=== PATIENT | female | born 1975 | race Caucasian/White ===

== ENCOUNTER 2017-09-23 22:08 | Emergency (ER) | payer MEDICAID, OTHER ==
[~2017-09-23] VITALS: Ht 154.9 cm; Wt 70.0 kg
[~2017-09-23 22:08] MED LIST: LORTA5 PO; PROT40TA PO; VITA100020 IJ
[2017-09-23 22:09] VITALS: BP 107/63; PULSE 69; RESP 16; TEMP 97.9; O2SAT 100
[2017-09-23 22:45] VITALS: BP 109/72; PULSE 69; RESP 16; TEMP 98.1; O2SAT 100
[2017-09-23] MEDS ORDERED: CYAN1TAB24 (22:56)
[2017-09-23] MEDS ORDERED: TEMA7.5C9 PO (22:56)
[2017-09-23] MEDS ORDERED: BUPIVACAINE HCL PF 0.5% 30 ML VIAL INFIL ONE (23:15)
--- NOTE | 2017-09-24 00:05 | PD ---
HPI . Oral/dental problem Chief Complaint: Oral / Dental Pain or Problem Time Seen by Provider: 22:52 Travel History International Travel<30 days: No Contact w/Intl Traveler<30days: No Traveled to known affect area: No History of Present Illness HPI 41-year-old female presents with complaints of dental pain, scheduled for dental extraction 09/26, presents requesting pain medications. Patient states she has allergies to acetaminophen, ibuprofen, tramadol, and oxycodone is the only medication that works for her. Patient is noted to be nodding and somewhat lethargic at presentation, needing to be awakened repeatedly during exam and history. Patient's level complains of pain at 10/10 is discordant with patient's presentation [facility] Past Medical History Narrative Medical Past medical history reviewed Asthma: Yes Anxiety: Yes Depression: Yes Cardiovascular Problems: No Diminished Hearing: Yes (PT IS DEAF) Endocrine: No Gastrointestinal Disorders: Yes Genitourinary: Yes (gallstones) Immune Disorder: No Musculoskeletal: Yes (CHRONIC BACK PAIN) Neurologic: Yes Psychiatric: Yes (insomnia) Reproductive: No Respiratory: Yes Migraines: Yes : 5 Para: 5 Tubal Ligation: Yes Past Surgical History Abdominal Surgery: Yes (GALLSTONES) Section: Yes (X1) Cholecystectomy: Yes Other Surgery: No Social History Alcohol Use: Yes (OCC) Tobacco Use: Yes (VAPOR) Substance Use: No Allergies-Medications (Allergen,Severity, Reaction): Coded Allergies: tramadol (Unverified Allergy, Intermediate, 04/25/17) acetaminophen (Verified Allergy, Unknown, 09/23/17) ibuprofen (Verified Allergy, Unknown, 09/23/17) Reported Meds & Prescriptions Reported Meds & Active Scripts Active Reported Restoril (Temazepam) 7.5 Mg Cap 7.5 Mg PO HS PRN B12 (Cyanocobalamin) 1,000 Mcg Tab Narrative Medication Allergies and medications reviewed Review of Systems Except as stated in HPI: all other systems reviewed are Neg General / Constitutional: No: Fever Eyes: No: Visual changes HENT: Positive: Dental Difficulties, No: Headaches Cardiovascular: No: Chest Pain or Discomfort Respiratory: No: Shortness of Breath Gastrointestinal: No: Abdominal Pain Genitourinary: No: Dysuria Musculoskeletal: No: Pain Skin: No Rash Neurologic: No: Weakness Psychiatric: No: Depression Endocrine: No: Polydipsia Hematologic/Lymphatic: No: Easy Bruising Physical Exam Narrative GENERAL: Awake and lethargic, easily arousable. Vital signs afebrile normal and stable SKIN: Warm and dry. Color is normal no diaphoresis cyanosis or pallor HEAD: Atraumatic. Normocephalic. EYES: Pupils equal and round. No scleral icterus. No injection or drainage. ENT: No nasal bleeding or discharge. Mucous membranes pink and moist. Poor dentition no obvious buccal swelling or facial cellulitis, no obvious gingival edema or bleeding. Patient is phonating normally. NECK: Trachea midline. No JVD. Supple full range of motion CARDIOVASCULAR: Regular rate and rhythm. RESPIRATORY: No accessory muscle use. Clear to auscultation. Breath sounds equal bilaterally. GASTROINTESTINAL: Abdomen soft, non-tender, nondistended. Hepatic and splenic margins not palpable. MUSCULOSKELETAL: Extremities without clubbing, cyanosis, or edema. No obvious deformities. NEUROLOGICAL: Awake and alert. No obvious cranial nerve deficits. Motor grossly within normal limits. Five out of 5 muscle strength in the arms and legs. Normal speech. PSYCHIATRIC: Appropriate mood and affect; Data Data Last Documented VS Vital Signs Date Time Temp Pulse Resp B/P (MAP) Pulse Ox O2 Delivery O2 Flow Rate FiO2 09/23/17 22:53 62 16 09/23/17 22:45 98.1 109/72 (84) 100 09/23/17 22:09 Room Air Orders Orders Bupivacaine Pf 0.5% Inj (Marcaine Pf 0.5 (09/23/17 23:15) Ed Discharge Order (09/23/17 23:58) [facility] Medical Decision Making Medical Screen Exam Complete: Yes Emergency Medical Condition: Yes Medical Record Reviewed: Yes Differential Diagnosis Dental pain, dental caries, malingering Narrative Course Based upon patient's presentation, patient's intermittent lethargy and requirement to be awakened repeatedly and observed to be nodding, administration of narcotic medication not currently warranted and potentially unsafe. Patient was offered dental block with bupivacaine and oral antibiotics for possible dental infection which could exacerbate her pain. Patient refused all of the above, requesting narcotics for her pain only Diagnosis Primary Impression: Pain, dental Patient Instructions: Dental Caries (ED), General Instructions Additional Instructions: Follow-up with your dentist for further care of your dental issues. Disposition: 01 DISCHARGE HOME Condition: Stable Fernandez Phoenix MD Sep 24, 2017 00:05
== END 2017-09-24 02:56 | disposition home or self-care (01) ==
LOC: NEPE 22:08
DX: K08.89 Other specified disorders of teeth and supporting structures (principal); J45.909 Unspecified asthma, uncomplicated; F32.9 Major depressive disorder, single episode, unspecified; F41.9 Anxiety disorder, unspecified; H91.90 Unspecified hearing loss, unspecified ear; F17.290 Nicotine dependence, other tobacco product, uncomplicated; Z88.5 Allergy status to narcotic agent; Z88.6 Allergy status to analgesic agent
CPT/HCPCS: 99281

== ENCOUNTER 2017-12-06 18:55 | Emergency (ER) | payer MEDICAID ==
[~2017-12-06] VITALS: Ht 154.9 cm; Wt 71.0 kg
[~2017-12-06 18:55] MED LIST changes: +CYAN1TAB24; -LORTA5 PO; -PROT40TA PO; +TEMA7.5C9 PO; -VITA100020 IJ
[2017-12-06 19:11] VITALS: BP 110/59; PULSE 98; RESP 18; TEMP 97.5; O2SAT 98
--- NOTE | 2017-12-06 20:18 | PD ---
HPI Chief Complaint: Back/ Neck Pain or Injury Time Seen by Provider: 20:00 Travel History International Travel<30 days: No Contact w/Intl Traveler<30days: No Traveled to known affect area: No History of Present Illness HPI The patient was seen and examined in the presence of the nurse. This patient complains of low back pain. She reports that she bent over to sweet pickle maker a box and then her low back started hurting. It radiated into her left buttock. Duration 1 day. Severity is moderate. No neurologic complaint. Patient is deaf but formal sign language translation services were utilized. [facility] Past Medical History Asthma: Yes Anxiety: Yes Depression: Yes Cardiovascular Problems: No Diminished Hearing: Yes (PT IS DEAF) Endocrine: No Gastrointestinal Disorders: Yes (egd in past) Genitourinary: Yes (gallstones) Immune Disorder: No Musculoskeletal: Yes (CHRONIC BACK PAIN) Neurologic: Yes Psychiatric: Yes (insomnia) Reproductive: No Respiratory: Yes Migraines: Yes Tetanus Vaccination: > 5 Years Influenza Vaccination: No ?: Not : 5 Para: 5 Tubal Ligation: Yes Past Surgical History Abdominal Surgery: Yes (GALLSTONES) Section: Yes (X1) Cholecystectomy: Yes Other Surgery: Yes (gastric [id number],choly 2002, csect) Social History Alcohol Use: Yes (OCC) Tobacco Use: Yes (1/2 PPD) Substance Use: No Allergies-Medications (Allergen,Severity, Reaction): Coded Allergies: tramadol (Unverified Allergy, Intermediate, 12/06/17) acetaminophen (Verified Allergy, Unknown, 12/06/17) ibuprofen (Verified Allergy, Unknown, 12/06/17) Reported Meds & Prescriptions Reported Meds & Active Scripts Active Reported Restoril (Temazepam) 7.5 Mg Cap 7.5 Mg PO HS PRN B12 (Cyanocobalamin) 1,000 Mcg Tab Review of Systems General / Constitutional: No: Fever HENT: No: Headaches Cardiovascular: No: Chest Pain or Discomfort Respiratory: No: Cough Gastrointestinal: No: Vomiting Physical Exam Narrative GASTROINTESTINAL: Abdomen soft, non-tender, nondistended. Positive bowel sounds. No hepato-splenomegaly, or palpable masses. No guarding. SKIN: Focused skin assessment reveals no rash or ulcers. Skin is warm and dry. Palpation shows no induration or nodules. Back: Challenging to evaluate objectively. Any light touch produces a exaggerated withdrawal response and yelling and crying. Symmetric lower extremity strength. I attempted straight leg raise maneuvers but had variable results Data Data Last Documented VS Vital Signs Date Time Temp Pulse Resp B/P (MAP) Pulse Ox O2 Delivery O2 Flow Rate FiO2 12/06/17 20:12 (76) 12/06/17 19:11 97.5 98 18 98 Orders Orders Oxycodone (Roxicodone) (12/06/17 20:15) Spine, Lumbar - Ltd (Ap & Lat) (12/06/17 ) MDM Medical Decision Making Medical Screen Exam Complete: Yes Emergency Medical Condition: Yes Medical Record Reviewed: Yes Differential Diagnosis Lumbar strain, sciatica, compression fracture As noted, evaluation challenging. The patient acts somewhat infantile. I recommended intramuscular injection of Toradol and Norflex and when she learned it was a "shot", she started crying and said she did not like those. I gave her 2 oxycodone instead for symptom relief I reviewed her lumbar spine x-rays show minor degenerative change at the L5/S1 level but no compression fracture Stable for outpatient follow-up with her primary physician Patient declined to file Worker's Comp. paperwork Narrative Course see above Diagnosis Primary Impression: Acute lumbar myofascial strain Qualified Codes: S39.012A - Strain of muscle, fascia and tendon of lower back , initial encounter Additional Instructions: The patient was advised to follow up with their physician and return if they worsen. Med/Other Pt SpecificInfo: Other Disposition: 01 DISCHARGE HOME Condition: Stable Kostas Gudino MD Dec 06, 2017 20:18
--- NOTE | 2017-12-06 21:03 | RADRPT ---
EXAM DATE/TIME: 12/06/2017 20:25 [facility] COMPARISON: No previous studies available for comparison. INDICATIONS : Lower back pain post lifting injury today MEDICAL HISTORY : None. SURGICAL HISTORY : None. ENCOUNTER: Initial ACUITY: 1 day PAIN SCORE: 10/10 LOCATION: Lumbar spine FINDINGS: Two view examination was performed. There are five non-rib bearing vertebral bodies. The vertebral bodies are in normal alignment without evidence of subluxation or scoliosis. There is mild disc spac e narrowing and marginal osteophytes at the L5-S1 level. The remaining disc spaces are maintained. T here is facet hypertrophy at the L5-S1 level. The pedicles are intact. Bony mineralization is normal . No fracture is identified. Clips are seen in the upper abdomen. Fasteners are seen in the pelvis l ikely from tubal ligation procedure. CONCLUSION: Degenerative change of the L5-S1 level. Daniel Cantu MD on December 06, 2017 at 21:00 Board Certified Radiologist. This report was verified electronically.
[2017-12-06 21:40] VITALS: BP 100/61; PULSE 70; RESP 18; O2SAT 100
[2017-12-06] MEDS ORDERED: CODE60 PO (21:51)
== END 2017-12-06 22:05 | disposition home or self-care (01) ==
LOC: PHED 18:55
DX: S39.012A Strain of muscle, fascia and tendon of lower back, initial encounter (principal); M51.37 Other intervertebral disc degeneration, lumbosacral region; H91.3 Deaf nonspeaking, not elsewhere classified; J45.909 Unspecified asthma, uncomplicated; F41.9 Anxiety disorder, unspecified; F32.9 Major depressive disorder, single episode, unspecified; G47.00 Insomnia, unspecified; F17.200 Nicotine dependence, unspecified, uncomplicated; X50.0XXA Overexertion from strenuous movement or load, initial encounter
CPT/HCPCS: 72100; 99283